=== PATIENT | female | born 1980 | race Caucasian/White ===

== ENCOUNTER 2025-03-26 11:02 | Outpatient (CLI) | payer BC, SELFPAY ==
[2025-03-26 16:23] LABS: Influenza A, PCR Not Detected (NotDetected); Influenza B, PCR Not Detected (NotDetected)
[2025-03-26 19:44] LABS: Coronavirus 19, PCR Detected (NotDetected)
== END 2025-03-26 23:59 ==
LOC: LAB.DROPOF 03-28 11:03
PROVIDERS: PCP Family Medicine; Visit Provider Student in an Organized Health Care Education/Training Program
DX: J06.9 Acute upper respiratory infection, unspecified (principal)
CPT/HCPCS: 87636